=== PATIENT | female | born 1955 | race Caucasian/White ===

== ENCOUNTER 2021-03-08 14:57 | Outpatient (CLI) | payer MEDICARE, SELFPAY ==
--- NOTE | 2021-03-08 | XR_ITS ---
WS: [id number] SCREENING DEXA SCAN [facility] CLINICAL INFORMATION: ASYMPTOMATIC POSTMENOPAUSAL COMPARISON: None. FINDINGS: The L1-L4 bone mineral density measures 0.882 g/cm2. This corresponds to a T score score of -2.5 and Z score of -0.8. Left femoral neck bone mineral density measures 0.812 g/cm2. This corresponds to a T score of -1.6 an d Z score of -0.3. Right femoral neck bone mineral density measures 0.833 g/cm2. This corresponds to a T score -1.4of an d Z score of -0.1. Mean femoral neck bone mineral density measures 0.823 g/cm2. This corresponds to a T score of -1.5 an d Z score of -0.2. XR/XR DEXA axial skeleton* [id number] IMPRESSION: Osteoporosis lumbar spine at the lower end of the range. Osteopenia in the femo ral necks. Patient's FRAX calculated 10 year probability for major osteoporotic fracture i s 10.6 % and osteoporotic hip fracture is 1.8%.
== END 2021-03-08 14:58 | disposition home or self-care (01) ==
PROVIDERS: Visit Provider Internal Medicine
DX: Z78.0 Asymptomatic menopausal state (principal); M81.0 Age-related osteoporosis without current pathological fracture; M85.88 Other specified disorders of bone density and structure, other site
CPT/HCPCS: 77080

== ENCOUNTER 2024-02-02 14:16 | Outpatient (CLI) | payer MEDICARE, SELFPAY ==
--- NOTE | 2024-02-02 14:43 | XR_ITS ---
WS: [id number] Exam: XR hip BI m 5V wo/w pel* [id number] Date/Time of Exam: 02/02/2024 3:10 PM Reason For Exam: HIP PAIN Mild to moderate degenerative narrowing of both hip joints. The pattern is bilaterally symmetrical. N o fracture noted. Unremarkable soft tissues. XR/XR hip BI m 5V wo/w pel* [id number] IMPRESSION: 1. Mild to moderate DJD. The pattern is bilaterally symmetrical.
--- NOTE | 2024-02-02 14:43 | XR_ITS ---
WS: [id number] Exam: XR lumbar spine 2-3V* [id number] Date/Time of Exam: 02/02/2024 3:10 PM Reason For Exam: LUMBAR BACK PAIN No fracture or dislocation. Disc spaces are preserved. Mild dextroscoliosis. Slight degenerative ante rolisthesis of L4 on L5. Facet DJD at all levels. XR/XR lumbar spine 2-3V* [id number] IMPRESSION: 1. No fracture or malalignment. 2. Degenerative changes. Slight degenerative anterolisthesis of L4 on L5.
== END 2024-02-02 14:17 | disposition home or self-care (01) ==
PROVIDERS: PCP Nurse Practitioner Family; Visit Provider Nurse Practitioner Family
DX: M16.0 Bilateral primary osteoarthritis of hip (principal); M54.50 Low back pain, unspecified
CPT/HCPCS: 72100; 73521; 73523